=== PATIENT | female | born 1995 | race Caucasian/White ===

== ENCOUNTER → 2020-12-18 | Day surgery (SDC) | payer OTHER ==
[~2020-12-18] VITALS: Ht 154.9 cm; Wt 59.0 kg
[~2020-12-18] MED LIST: ACETAMINOPHEN500 M1 PO; CLARITIN10 MG PO; COLACE100 MG PO; ESCITALOPRAM OX10 MG PO; FLONASE ALLER15.8 ML; MOTRIN600 MG PO; OXY-IR 5MG5 MG PO; PRENATAL FORMU1 EACH PO
[2020-12-18 10:38] LABS: HCG (URINE) SCREEN NEGATIVE (NEGATIVE)
== END | disposition home or self-care (01) ==
LOC: FAS 10:11
PROVIDERS: Anesthesiology
DX: K81.1 Chronic cholecystitis (principal); K82.8 Other specified diseases of gallbladder; K66.8 Other specified disorders of peritoneum; K21.9 Gastro-esophageal reflux disease without esophagitis; F41.9 Anxiety disorder, unspecified; F32.A Depression, unspecified; G43.909 Migraine, unspecified, not intractable, without status migrainosus; Z79.899 Other long term (current) drug therapy; Z80.1 Family history of malignant neoplasm of trachea, bronchus and lung; Z82.49 Family history of ischemic heart disease and other diseases of the circulatory system
CPT/HCPCS: 84703; J1100; J1644; J2250; J2405; J2550; J2704; J2710; J3010; J7120; Q9967